=== PATIENT | male | born 1970 | race Two or more races ===

== ENCOUNTER 2024-09-29 17:51 | Inpatient (IN) | payer OTHER ==
[~2024-09-29] VITALS: Ht 167.6 cm; Wt 91.2 kg
[2024-09-29] MEDS: ACETAMINOPHEN ES 500 MG TABLET PO ONE (18:30)
[2024-09-29] MEDS ORDERED: ONDANSETRON HCL/PF 4 MG/2 ML VIAL ONE (18:36)
[2024-09-29] MEDS ORDERED: ACETAMINOPHEN ES 500 MG TABLET ONE (18:36)
[2024-09-29] MEDS: ONDANSETRON HCL/PF 4 MG/2 ML VIAL IVP ONE (18:44)
[2024-09-29 18:49] LABS: BASOPHILS # (AUTO) 0.2 K/uL (0.0-0.2); BASOPHILS % (AUTO) 1.4 % (0.0-2.0); EOSINOPHILS % (AUTO) 0.1 % (0.0-6.0); HEMATOCRIT 49 % (39-51); HEMOGLOBIN 16.7 g/dL (13.5-17.5); LYMPHOCYTES # (AUTO) 2.3 K/uL (0.8-4.8); LYMPHOCYTES % (AUTO) 20.5 % (20.0-44.0); MEAN CORPUSCULAR HEMOGLOBIN 32 PG (26.0-33.0); MEAN CORPUSCULAR HGB CONC 34 g/dl (31.0-36.0); MEAN CORPUSCULAR VOLUME 93 fL (80-96); MONOCYTES # (AUTO) 0.6 K/uL (0.1-1.30); MONOCYTES % (AUTO) 5.3 % (2.0-12.0); NEUTROPHILS # (AUTO) 8.1 K/uL (1.8-8.9); NEUTROPHILS % (AUTO) 72.7 % (43.0-81.0); PLATELET COUNT (AUTO) 397 K/uL (150-450); RED BLOOD CELL COUNT(AUTO) 5.27 MIL/uL (4.5-6.0); RED CELL DISTRIBUTION WIDTH 13.4 % (11.5-15.0); WHITE BLOOD COUNT (AUTO) 11.2 K/uL (4.3-11.0)
[2024-09-29 18:59] LABS: CALCIUM, SERUM 8.9 mg/dL (8.5-10.1); CARBON DIOXIDE 17 mmol/L (21-32); CHLORIDE 94 mmol/L (98-107); CREATININE 1.1 mg/dL (0.6-1.3); GLUCOSE 174 mg/dL (74-106); POTASSIUM 3.3 mmol/L (3.5-5.1); SODIUM SERUM 134 mmol/L (136-145); UREA NITROGEN, BLOOD 17 mg/dL (7-18)
[2024-09-29 19:02] LABS: INR 0.99 (0.91-1.10); PARTIAL THROMBOPLASTIN TIME 23.1 SEC (24.3-34.3); PROTHROMBIN TIME 10.5 SECS (9.2-11.1)
[2024-09-29] MEDS ORDERED: IV NS 0.9% 500 ML IV ONE (19:05)
[2024-09-29] MEDS ORDERED: IOHEXOL-300 100 ML VIAL IV ONE (19:05)
[2024-09-29 19:06] LABS: ALANINE AMINOTRANSFERASE 73 U/L (12-78); ALBUMIN 3.8 g/dL (3.4-5.0); ALKALINE PHOSPHATASE 70 U/L (46-116); ASPARTATE AMINOTRANSFERASE 50 U/L (15-37); BILIRUBIN,DIRECT 0.1 mg/dL (0.0-0.2); BILIRUBIN,TOTAL 0.4 mg/dL (0.2-1.0); LIPASE 14 U/L (16-77)
[2024-09-29] MEDS ORDERED: DICYCLOMINE HCL 10 MG CAPSULE PO ONE (21:47)
[2024-09-29] MEDS ORDERED: FAMOTIDINE/PF INJ 20 MG/2 ML VIAL IV ONE (21:47)
[2024-09-29] MEDS: PANTOPRAZOLE 40 MG VIAL IV ONE (21:54)
[2024-09-29] MEDS: DICYCLOMINE HCL 10 MG CAPSULE PO ONE (21:54)
[2024-09-29] MEDS: FAMOTIDINE/PF INJ 20 MG/2 ML VIAL IV ONE (21:54)
[2024-09-29] MEDS ORDERED: KETOROLAC TROMETHAMINE 15 MG/ML VIAL IV ONE (22:00)
[2024-09-29 22:30] LABS: BASOPHILS # (AUTO) 0.2 K/uL (0.0-0.2); BASOPHILS % (AUTO) 1.1 % (0.0-2.0); EOSINOPHILS % (AUTO) 0.1 % (0.0-6.0); HEMATOCRIT 49 % (39-51); HEMOGLOBIN 16.5 g/dL (13.5-17.5); LYMPHOCYTES # (AUTO) 1.7 K/uL (0.8-4.8); LYMPHOCYTES % (AUTO) 12.7 % (20.0-44.0); MEAN CORPUSCULAR HEMOGLOBIN 31 PG (26.0-33.0); MEAN CORPUSCULAR HGB CONC 34 g/dl (31.0-36.0); MEAN CORPUSCULAR VOLUME 92 fL (80-96); MONOCYTES # (AUTO) 0.7 K/uL (0.1-1.30); MONOCYTES % (AUTO) 5.1 % (2.0-12.0); NEUTROPHILS # (AUTO) 11.1 K/uL (1.8-8.9); PLATELET COUNT (AUTO) 417 K/uL (150-450); RED BLOOD CELL COUNT(AUTO) 5.27 MIL/uL (4.5-6.0); RED CELL DISTRIBUTION WIDTH 13.3 % (11.5-15.0); WHITE BLOOD COUNT (AUTO) 13.7 K/uL (4.3-11.0)
[2024-09-29 22:45] LABS: APPEARANCE,URINE CLEAR (CLEAR); BILIRUBIN,URINE NEGATIVE (NEGATIVE); BLOOD, URINE 3+ Ery/uL (NEGATIVE); COLOR,URINE YELLOW (YELLOW); KETONES,URINE 1+ mg/dL (NEGATIVE); LEUKOCYTE ESTERASE ,URINE NEGATIVE (NEGATIVE); NITRITE, URINE NEGATIVE (NEGATIVE); PROTEIN,URINE 3+ mg/dl (NEGATIVE); UGLUCOSE NEGATIVE (NEGATIVE); UROBILINOGEN,URINE 0.2 EU/dL (0.2)
[2024-09-29 22:52] LABS: LACTIC ACID 8.5 mmol/L (0.4-2.0)
[2024-09-29 22:59] LABS: RBC,URINE 21-50 /HPF (0-2); WBC,URINE 0-2 /HPF (0-3)
[2024-09-29 23:00] LABS: ADD URINE CULTURE YES; BACTERIA,URINE 1+ /HPF (None Seen)
[2024-09-29] MEDS ORDERED: IV NS 0.9% 250 ML IV ONE (23:08)
[2024-09-29] MEDS ORDERED: IOHEXOL-350 100 ML VIAL IV ONE (23:08)
[2024-09-30] MEDS ORDERED: MAGNESIUM HYDROXIDE 30 ML UDC PO PRN (01:00)
[2024-09-30] MEDS ORDERED: Z GUARD REMEDY 4 OZ OINT TP PRN (01:00)
[2024-09-30] MEDS: IV NS 0.9% 1,000 ML BAG IV ONE (01:00)
[2024-09-30] MEDS ORDERED: PIPERACILLIN /TAZOBACTAM 3.375 G in IV D5W 50 ML IV SCH (01:00)
[2024-09-30 04:00] VITALS: BP 142/84; TEMP 97.9; O2SAT 99
[2024-09-30] MEDS: PIPERACI/TAZO 3.375GM/D5W 50ML PB IV ONE (04:24)
[2024-09-30] MEDS: POTASSIUM CHLORIDE 20 MEQ TAB.PRT.SR PO ONE ×2 (04:26)
[2024-09-30] MEDS: ENOXAPARIN SODIUM 40 MG/0.4 ML DISP.SYRIN SQ SCH (04:27)
[2024-09-30] MEDS: PIPERACILLIN /TAZOBACTAM 3.375 G in IV NS 0.9% 100 ML IV ONE (04:28)
[2024-09-30 07:43] LABS: CALCIUM, SERUM 8.2 mg/dL (8.5-10.1); MAGNESIUM 2.2 mg/dL (1.8-2.4); PHOSPHORUS 2.3 mg/dL (2.5-4.9); POTASSIUM 3.3 mmol/L (3.5-5.1)
[2024-09-30 07:52] LABS: BASOPHILS # (AUTO) 0.1 K/uL (0.0-0.2); EOSINOPHILS # (AUTO) 0.1 K/uL (0.0-0.7); EOSINOPHILS % (AUTO) 0.6 % (0.0-6.0); HEMATOCRIT 41 % (39-51); HEMOGLOBIN 14.3 g/dL (13.5-17.5); LYMPHOCYTES # (AUTO) 2.7 K/uL (0.8-4.8); LYMPHOCYTES % (AUTO) 26.3 % (20.0-44.0); MEAN CORPUSCULAR HEMOGLOBIN 32 PG (26.0-33.0); MEAN CORPUSCULAR HGB CONC 35 g/dl (31.0-36.0); MEAN CORPUSCULAR VOLUME 92 fL (80-96); MONOCYTES # (AUTO) 1.2 K/uL (0.1-1.30); MONOCYTES % (AUTO) 11.1 % (2.0-12.0); NEUTROPHILS # (AUTO) 6.4 K/uL (1.8-8.9); PLATELET COUNT (AUTO) 343 K/uL (150-450); RED CELL DISTRIBUTION WIDTH 13.5 % (11.5-15.0); WHITE BLOOD COUNT (AUTO) 10.4 K/uL (4.3-11.0)
[2024-09-30 07:56] LABS: THYROID STIMULATING HORMONE 2.31 uIU/mL (0.358-3.74)
[2024-09-30 08:00] VITALS: BP 151/98; TEMP 98.4; O2SAT 98
[2024-09-30] MEDS: PANTOPRAZOLE 40 MG VIAL IV SCH (08:14)
[2024-09-30] MEDS: PIPERACILLIN /TAZOBACTAM 3.375 G in IV D5W 100 ML IV SCH (09:29)
[2024-09-30] MEDS: ONDANSETRON HCL/PF 4 MG/2 ML VIAL IVP PRN (09:29)
[2024-09-30] MEDS: MAG HYDROX/AL HYDROX/SIMETH 30 ML UDC PO PRN (09:29)
[2024-09-30] MEDS: POTASSIUM CHLORIDE 20 MEQ TAB.PRT.SR PO SCH (11:56)
[2024-09-30 12:00] VITALS: BP 146/96; TEMP 98.2; O2SAT 99
[2024-09-30] MEDS: IV NS 0.9% 1,000 ML IV SCH (12:39)
[2024-09-30] MEDS: CALCIUM CARBONATE 500 MG TAB.CHEW PO PRN (12:41)
[2024-09-30 16:00] VITALS: BP 133/97; TEMP 99.1; O2SAT 98
[2024-09-30] MEDS: K PHOS NEUTRAL 250 MG TABLET PO ONE (16:26)
[2024-09-30] MEDS: ACETAMINOPHEN 325 MG TABLET PO PRN (17:09)
[2024-09-30 20:00] VITALS: BP 142/89; TEMP 98.4; O2SAT 96
[2024-09-30] MEDS: TRAZODONE 50 MG TABLET PO SCH (22:41)
[2024-10-01] VITALS: BP 133/81; TEMP 98.1; O2SAT 98
[2024-10-01 04:00] VITALS: BP 137/95; TEMP 98.2; O2SAT 99
[2024-10-01 06:58] LABS: BASOPHILS # (AUTO) 0.2 K/uL (0.0-0.2); EOSINOPHILS # (AUTO) 0.2 K/uL (0.0-0.7); EOSINOPHILS % (AUTO) 2.4 % (0.0-6.0); HEMATOCRIT 39 % (39-51); HEMOGLOBIN 13.3 g/dL (13.5-17.5); LYMPHOCYTES # (AUTO) 3.3 K/uL (0.8-4.8); LYMPHOCYTES % (AUTO) 43.5 % (20.0-44.0); MEAN CORPUSCULAR HEMOGLOBIN 32 PG (26.0-33.0); MEAN CORPUSCULAR HGB CONC 34 g/dl (31.0-36.0); MEAN CORPUSCULAR VOLUME 93 fL (80-96); MONOCYTES # (AUTO) 0.7 K/uL (0.1-1.30); MONOCYTES % (AUTO) 9.7 % (2.0-12.0); NEUTROPHILS # (AUTO) 3.2 K/uL (1.8-8.9); NEUTROPHILS % (AUTO) 42.4 % (43.0-81.0); PLATELET COUNT (AUTO) 267 K/uL (150-450); RED CELL DISTRIBUTION WIDTH 13.5 % (11.5-15.0); WHITE BLOOD COUNT (AUTO) 7.5 K/uL (4.3-11.0)
[2024-10-01 07:01] LABS: CALCIUM, SERUM 8.5 mg/dL (8.5-10.1); MAGNESIUM 2.4 mg/dL (1.8-2.4); PHOSPHORUS 2.6 mg/dL (2.5-4.9); POTASSIUM 3.7 mmol/L (3.5-5.1)
[2024-10-01 08:00] VITALS: BP 138/91; TEMP 98.8; O2SAT 99
[2024-10-01 16:00] VITALS: BP 127/83; TEMP 98.4; O2SAT 97
[2024-10-01 20:00] VITALS: BP 135/88; TEMP 98.8; O2SAT 99
[2024-10-02 04:00] VITALS: BP 142/92; TEMP 99; O2SAT 99
[2024-10-02 08:00] VITALS: BP 153/100; TEMP 99; O2SAT 97
[2024-10-02] MEDS: PANTOPRAZOLE 40 MG TABLET.DR PO SCH (09:12)
[2024-10-02] MEDS ORDERED: FUROSEMIDE 20 MG/2 ML VIAL IV SCH (10:00)
[2024-10-02 16:00] VITALS: BP 135/98; TEMP 99.1; O2SAT 96
[2024-10-02 20:00] VITALS: BP 143/90; TEMP 99.9; O2SAT 98
[2024-10-03 04:00] VITALS: BP 139/94; TEMP 99.9; O2SAT 96
[2024-10-03 07:21] LABS: BASOPHILS # (AUTO) 0.1 K/uL (0.0-0.2); BASOPHILS % (AUTO) 0.6 % (0.0-2.0); EOSINOPHILS # (AUTO) 0.2 K/uL (0.0-0.7); EOSINOPHILS % (AUTO) 2.3 % (0.0-6.0); HEMATOCRIT 37 % (39-51); HEMOGLOBIN 12.7 g/dL (13.5-17.5); LYMPHOCYTES # (AUTO) 2.4 K/uL (0.8-4.8); LYMPHOCYTES % (AUTO) 23.4 % (20.0-44.0); MEAN CORPUSCULAR HEMOGLOBIN 32 PG (26.0-33.0); MEAN CORPUSCULAR HGB CONC 35 g/dl (31.0-36.0); MEAN CORPUSCULAR VOLUME 93 fL (80-96); MONOCYTES # (AUTO) 0.6 K/uL (0.1-1.30); MONOCYTES % (AUTO) 5.9 % (2.0-12.0); NEUTROPHILS # (AUTO) 7.1 K/uL (1.8-8.9); NEUTROPHILS % (AUTO) 67.8 % (43.0-81.0); PLATELET COUNT (AUTO) 208 K/uL (150-450); RED BLOOD CELL COUNT(AUTO) 3.96 MIL/uL (4.5-6.0); WHITE BLOOD COUNT (AUTO) 10.4 K/uL (4.3-11.0)
[2024-10-03 07:26] LABS: CALCIUM, SERUM 8.9 mg/dL (8.5-10.1); CREATININE 0.8 mg/dL (0.6-1.3); POTASSIUM 3.5 mmol/L (3.5-5.1)
[2024-10-03 08:00] VITALS: BP 135/95; TEMP 98.2; O2SAT 99
[2024-10-03] MEDS ORDERED: CIPR-262 PO (08:40)
[2024-10-03 16:00] VITALS: BP 122/93; TEMP 98.8; O2SAT 97
[2024-10-03 20:00] VITALS: BP 146/88; TEMP 100; O2SAT 99
[2024-10-04 04:00] VITALS: BP 130/71; TEMP 98.8; O2SAT 98
[2024-10-04 08:05] VITALS: BP 135/91; TEMP 99.5; O2SAT 96
[2024-10-04 16:00] VITALS: BP 130/91; TEMP 98.8; O2SAT 95
[2024-10-04 20:52] VITALS: BP 124/77; TEMP 98.8; O2SAT 95
[2024-10-05 04:14] VITALS: BP 121/79; TEMP 98.2; O2SAT 98
[2024-10-05 08:00] VITALS: BP 129/89; TEMP 97.7; O2SAT 96
[2024-10-05] MEDS: INDOMETHACIN 25 MG CAPSULE PO SCH (09:49)
[2024-10-05] MEDS: COLCHICINE 0.6 MG TABLET PO SCH (11:49)
== END 2024-10-05 17:31 | disposition home health service (06) | DRG 248 ==
LOC: ER 18:30 → TELE1 09-30 02:19 → MEDSG1 10-01 09:46
PROVIDERS: ADMIT Internal Medicine; ATTEND Internal Medicine
DX: A04.8 Other specified bacterial intestinal infections (principal); E87.20 Acidosis, unspecified; E87.1 Hypo-osmolality and hyponatremia; E87.8 Other disorders of electrolyte and fluid balance, not elsewhere classified; E86.1 Hypovolemia; K29.70 Gastritis, unspecified, without bleeding; Z90.49 Acquired absence of other specified parts of digestive tract; E87.6 Hypokalemia; M10.9 Gout, unspecified; R79.89 Other specified abnormal findings of blood chemistry; Z79.899 Other long term (current) drug therapy
CPT/HCPCS: 36415; 71045-TC; 73630-TC; 80048-TC; 80076-TC; 81001; 83605-TC; 83690-TC; 83735-TC; 84100-TC; 84443-TC; 84484-TC; 84550-TC; 85025-TC; 85730-TC; 87040-TC; 87081-TC; 93307-TC; 97112-TC; 97116-TC; 97530-TC; A4223; G0378; J1308; J1650; J2405; J2470; J2543; J3490; J7030; J7040; J7050; J7060; Q9967